=== PATIENT | male | born 1950 | race Hispanic/Latino ===

== ENCOUNTER 2021-11-24 23:21 | Emergency (ER) | payer BC ==
[2021-11-24 23:57] LABS: Bacteria/HPF 1+ HPF (None Seen); Bilirubin Negative (Negative); Blood, Urine 3+ (Negative); Clarity Turbid (Clear); Glucose, Urine (Dipstick) Normal (Negative); Ketone, Urine Negative (Negative); Leukocyte 25 Leu/uL (Negative); Nitrite Negative (Negative); Protein, Urine (Dipstick) Negative (Neg-Trace); RBC/HPF Greater than 50 HPF (0-3); Specific Gravity, Urine 1.011 (1.002-1.036); Squamous Epithelial 0-3 HPF (0-3); Urobilinogen Normal mg/dL (Less than 2)
[2021-11-25] MEDS ORDERED: Ciprofloxacin 500 MG TAB ONE (04:40)
== END 2021-11-25 04:53 | disposition home or self-care (01) ==
LOC: ERS 23:21
DX: R39.198 Other difficulties with micturition (principal); R31.9 Hematuria, unspecified; I10 Essential (primary) hypertension; I25.2 Old myocardial infarction
CPT/HCPCS: 51702; 81003; 81015

== ENCOUNTER 2022-04-30 11:15 | Outpatient (CLI) | payer BC ==
[2022-04-30 12:13] LABS: #Eosinphils 0.2 10x3/uL (0.0-0.5); #Monocytes 0.6 10x3/uL (0.0-1.1); #Neutrophils 5.1 10x3/uL (1.5-8.4); %Basophils 0.5 % (0.0-2.0); %Eosinophils 2.1 % (0.0-6.0); %Lymphocytes 25.6 % (18.0-47.0); %Neutrophils 63.6 % (40.0-75.0); Hemoglobin 14.7 g/dL (13.5-17.5); Mean Corpuscular HGB CONC 34.5 g/dL (32.0-36.0); Mean Corpuscular Hemoglobin 28.7 pg (27.0-33.0); Mean Platelet Volume 11.4 fl (7.4-10.4); Platelet Count 192 10x3/uL (150-450); RBC Distribution Width 13.3 % (11.5-14.5); Red Blood Cell (RBC) Count 5.13 10x6/uL (4.32-5.72)
[2022-04-30 13:11] LABS: ALT (SGPT) 18 U/L (8-55); AST (SGOT) 19 U/L (5-34); Alkaline Phosphatase 97 U/L (40-110); Anion Gap 13 mmol/L (10-20); BUN (Urea Nitrogen) 17 mg/dL (8.4-25.7); Bilirubin, Total 1.4 mg/dL (0.2-1.2); Calc. Creatinine Clearance 0 mL/min (70-130); Calcium 9.3 mg/dL (7.8-10.44); Carbon Dioxide 24 mmol/L (23-31); Chloride 108 mmol/L (98-107); Estimated GFR 76; Globulin 2.9 g/dL (2.4-3.5); Glucose 100 mg/dL (80-115); Potassium 4.4 mmol/L (3.5-5.1); Protein, Total 6.9 g/dL (5.8-8.1); Sodium 141 mmol/L (136-145)
== END 2022-04-30 11:16 | disposition home or self-care (01) ==
LOC: LABBT 11:15
PROVIDERS: ATTEND Internal Medicine Cardiovascular Disease
DX: Z01.812 Encounter for preprocedural laboratory examination (principal); Z20.822 Contact with and (suspected) exposure to COVID-19
CPT/HCPCS: 80053; 85025; 87811

== ENCOUNTER 2022-07-06 12:26 | Outpatient (CLI) | payer BC ==
[2022-07-06 13:15] LABS: Hemoglobin 14.1 g/dL (13.5-17.5); Mean Corpuscular HGB CONC 34.3 g/dL (32.0-36.0); Mean Corpuscular Hemoglobin 29.3 pg (27.0-33.0); Mean Corpuscular Volume 85.4 fl (81.2-95.1); Mean Platelet Volume 11.3 fl (7.4-10.4); Platelet Count 209 10x3/uL (150-450); RBC Distribution Width 13.2 % (11.5-14.5); Red Blood Cell (RBC) Count 4.81 10x6/uL (4.32-5.72); White Blood Cell (WBC) Count 8.9 10x3/uL (3.5-10.5)
[2022-07-06 13:32] LABS: Anion Gap 13 mmol/L (10-20); BUN (Urea Nitrogen) 18 mg/dL (8.4-25.7); Calc. Creatinine Clearance 0 mL/min (70-130); Calcium 10.1 mg/dL (7.8-10.44); Carbon Dioxide 28 mmol/L (23-31); Chloride 106 mmol/L (98-107); Estimated GFR 81; Glucose 109 mg/dL (80-115); Potassium 3.8 mmol/L (3.5-5.1); Sodium 143 mmol/L (136-145)
== END 2022-07-06 12:27 | disposition home or self-care (01) ==
LOC: LABBT 12:26
PROVIDERS: ATTEND Internal Medicine Cardiovascular Disease
DX: Z01.812 Encounter for preprocedural laboratory examination (principal); I42.9 Cardiomyopathy, unspecified
CPT/HCPCS: 80048; 85027

== ENCOUNTER 2022-07-09 09:21 | Day surgery (SDC) | payer BC ==
[2022-07-06 09:30] VITALS: BMI 27.2
[2022-07-09] MEDS ORDERED: Gentamicin 80 MG/2 ML VIAL ONE (14:02)
[2022-07-09] MEDS ORDERED: CEFAZOLIN 1 GM VIAL ONE (14:02)
[2022-07-09] MEDS ORDERED: Lidocaine 1% (PF) 30 ML VIAL ONE (14:03)
[2022-07-09] MEDS ORDERED: PROPOFOL 200 MG/20 ML VIAL ONE (14:20)
== END 2022-07-09 15:33 | disposition home or self-care (01) ==
LOC: SDC 09:21
PROVIDERS: ATTEND Internal Medicine Cardiovascular Disease
PROC: 02HK3KZ Insertion of Defibrillator Lead into Right Ventricle, Percutaneous Approach (ICD-10-PCS; principal; 2022-07-09)
PROC: 0JH608Z Insertion of Defibrillator Generator into Chest Subcutaneous Tissue and Fascia, Open Approach (ICD-10-PCS; principal; 2022-07-09)
DX: I25.5 Ischemic cardiomyopathy (principal); I11.0 Hypertensive heart disease with heart failure; I50.22 Chronic systolic (congestive) heart failure; I45.10 Unspecified right bundle-branch block; E78.00 Pure hypercholesterolemia, unspecified; H40.9 Unspecified glaucoma; I25.10 Atherosclerotic heart disease of native coronary artery without angina pectoris; I25.2 Old myocardial infarction; Z87.891 Personal history of nicotine dependence; Z79.2 Long term (current) use of antibiotics; Z79.82 Long term (current) use of aspirin; Z79.899 Other long term (current) drug therapy; Z95.5 Presence of coronary angioplasty implant and graft
CPT/HCPCS: J0690; J1580; J2001; J2704

== ENCOUNTER 2022-08-01 17:27 | Inpatient (IN) | payer BC, MEDICARE ==
[2022-08-01 17:54] LABS: #Eosinphils 0.1 thou/uL (0.0-0.7); #Lymphocytes 1.9 thou/uL (1.20-3.40); #Monocytes 0.6 thou/uL (0.11-0.59); #Neutrophils 5.2 thou/uL (1.40-6.50); %Basophils 0.2 % (0.0-1.0); %Eosinophils 1.8 % (0.0-10.0); %Lymphocytes 24.5 % (21.0-51.0); %Monocytes 7.8 % (0.0-10.0); %Neutrophils 65.8 % (42.0-75.0); Hemoglobin 16.3 g/dL (14.0-18.0); Mean Corpuscular HGB CONC 33.6 g/dL (32.0-36.0); Mean Corpuscular Hemoglobin 30.3 pg (27.0-31.0); Mean Corpuscular Volume 90.2 fl (78.0-98.0); Platelet Count 197 10x3/uL (130-400); RBC Distribution Width 12.3 % (11.5-14.5); Red Blood Cell (RBC) Count 5.38 mill/uL (4.70-6.10); White Blood Cell (WBC) Count 7.9 10x3/uL (4.8-10.8)
[2022-08-01 18:13] LABS: ALT (SGPT) 25 U/L (8-55); AST (SGOT) 22 U/L (5-34); Albumin 4.5 g/dL (3.4-4.8); Alkaline Phosphatase 100 U/L (40-110); Anion Gap 14 mmol/L (10-20); BUN (Urea Nitrogen) 20 mg/dL (8.4-25.7); Bilirubin, Total 0.9 mg/dL (0.2-1.2); Calc. Creatinine Clearance 0 mL/min (70-130); Calcium 9.8 mg/dL (7.8-10.44); Carbon Dioxide 24 mmol/L (23-31); Chloride 106 mmol/L (98-107); Estimated GFR 70; Globulin 3.6 g/dL (2.4-3.5); Glucose 106 mg/dL (80-115); Potassium 4.3 mmol/L (3.5-5.1); Protein, Total 8.1 g/dL (5.8-8.1); Sodium 140 mmol/L (136-145)
[2022-08-01] MEDS ORDERED: Nitroglycerin 2% Ointment 1 INCH/1 GM Packet ONE (19:05)
[2022-08-01] MEDS ORDERED: Aspirin Chewable 81 MG TAB ONE (19:05)
[2022-08-01 19:13] LABS: CK (CPK) 166 U/L (30-200); Lipase 57 U/L (8-78)
[2022-08-01 19:57] LABS: Bilirubin Negative (Negative); Blood, Urine Negative (Negative); Clarity Clear (Clear); Glucose, Urine (Dipstick) Normal (Negative); Ketone, Urine Negative (Negative); Leukocyte Negative Leu/uL (Negative); Nitrite Negative (Negative); Protein, Urine (Dipstick) Negative (Neg-Trace); Specific Gravity, Urine 1.008 (1.002-1.036); Urobilinogen Normal mg/dL (Less than 2); pH, Urine 6.5 (5.0-9.0)
[2022-08-01] MEDS ORDERED: Senokot S 8.6-50 MG TAB PO PRN (21:54)
[2022-08-01] MEDS ORDERED: Ondansetron ODT 4 MG TAB PO PRN (21:54)
[2022-08-01] MEDS ORDERED: Acetaminophen 325 MG TAB PO PRN (21:54)
[2022-08-01 22:21] VITALS: BMI 27.8
[2022-08-02 04:53] LABS: #Basophils 0.1 thou/uL (0.0-0.2); #Eosinphils 0.2 thou/uL (0.0-0.7); #Lymphocytes 2.1 thou/uL (1.20-3.40); #Monocytes 0.9 thou/uL (0.11-0.59); #Neutrophils 4.9 thou/uL (1.40-6.50); %Basophils 0.7 % (0.0-1.0); %Eosinophils 2.4 % (0.0-10.0); %Lymphocytes 25.7 % (21.0-51.0); %Monocytes 10.6 % (0.0-10.0); %Neutrophils 60.6 % (42.0-75.0); Hemoglobin 13.8 g/dL (14.0-18.0); Mean Corpuscular HGB CONC 33.4 g/dL (32.0-36.0); Mean Corpuscular Hemoglobin 30.1 pg (27.0-31.0); Mean Platelet Volume 9.2 fL (7.4-10.4); Platelet Count 171 10x3/uL (130-400); RBC Distribution Width 12.3 % (11.5-14.5); White Blood Cell (WBC) Count 8.1 10x3/uL (4.8-10.8)
[2022-08-02 05:12] LABS: Anion Gap 12 mmol/L (10-20); BUN (Urea Nitrogen) 20 mg/dL (8.4-25.7); Calc. Creatinine Clearance 78 mL/min (70-130); Calcium 8.8 mg/dL (7.8-10.44); Carbon Dioxide 25 mmol/L (23-31); Chloride 108 mmol/L (98-107); Estimated GFR 72; Glucose 101 mg/dL (80-115); Potassium 3.2 mmol/L (3.5-5.1); Sodium 142 mmol/L (136-145)
[2022-08-02] MEDS ORDERED: Potassium Chloride 20 MEQ TAB PO SCH (08:00)
[2022-08-02 08:39] LABS: Magnesium 2.1 mg/dL (1.6-2.6)
[2022-08-02] MEDS: Atorvastatin Calcium 40 MG TAB PO SCH (08:54)
[2022-08-02] MEDS: Aspirin 81 mg Enteric Coated Tablet PO SCH (08:54)
[2022-08-02] MEDS: Finasteride 5 MG TAB PO SCH (08:55)
[2022-08-02] MEDS: Tamsulosin HCl 0.4 MG CAP PO SCH (08:55)
[2022-08-02] MEDS: Famotidine 20 MG TAB PO SCH ×2 (08:55→21:29)
[2022-08-02] MEDS: Furosemide 20 MG TAB PO SCH (08:55)
[2022-08-02] MEDS: Brimonidine Tartrate 0.2% Ophth Soln 5 ml Bottle EA EYE SCH ×2 (08:55→21:27)
[2022-08-02] MEDS: Sacubitril 49 MG/Valsartan 51 MG TABLET PO SCH ×2 (08:55→21:29)
[2022-08-02] MEDS: Ezetimibe 10 MG TAB PO SCH (08:55)
[2022-08-02] MEDS: Timolol 0.5% Ophth Soln 5 ml Bottle EA EYE SCH ×2 (08:56→21:27)
[2022-08-02] MEDS ORDERED: FLU VACC QS2022-23(65YR UP)/PF 240 MCG/0.7 ML SYRINGE IM ONE (09:00)
[2022-08-02] MEDS: Enoxaparin Sodium 40 MG/0.4 ML SYRINGE SC SCH (13:33)
[2022-08-02] MEDS: Carvedilol 6.25 MG TAB PO SCH ×2 (13:33→15:28)
[2022-08-02] MEDS ORDERED: Latanoprost 0.005% Ophth Soln 2.5 ml Bottle EA EYE SCH (21:00)
[2022-08-02] MEDS: Indomethacin 25 mg Capsule PO SCH (21:29)
[2022-08-03 06:45] LABS: #Eosinphils 0.2 thou/uL (0.0-0.7); #Lymphocytes 2.1 thou/uL (1.20-3.40); #Monocytes 0.7 thou/uL (0.11-0.59); #Neutrophils 3.5 thou/uL (1.40-6.50); %Basophils 0.7 % (0.0-1.0); %Eosinophils 2.7 % (0.0-10.0); %Lymphocytes 31.9 % (21.0-51.0); %Monocytes 11.1 % (0.0-10.0); %Neutrophils 53.6 % (42.0-75.0); Hemoglobin 14.3 g/dL (14.0-18.0); Mean Corpuscular HGB CONC 33.5 g/dL (32.0-36.0); Mean Corpuscular Hemoglobin 30.1 pg (27.0-31.0); Platelet Count 152 10x3/uL (130-400); RBC Distribution Width 12.3 % (11.5-14.5); Red Blood Cell (RBC) Count 4.76 mill/uL (4.70-6.10); White Blood Cell (WBC) Count 6.5 10x3/uL (4.8-10.8)
[2022-08-03 07:13] LABS: Anion Gap 9 mmol/L (10-20); BUN (Urea Nitrogen) 20 mg/dL (8.4-25.7); Calc. Creatinine Clearance 91 mL/min (70-130); Calcium 9.2 mg/dL (7.8-10.44); Carbon Dioxide 25 mmol/L (23-31); Chloride 108 mmol/L (98-107); Estimated GFR 87; Glucose 100 mg/dL (80-115); Magnesium 2.1 mg/dL (1.6-2.6); Potassium 3.9 mmol/L (3.5-5.1); Sodium 138 mmol/L (136-145)
[2022-08-03] MEDS ORDERED: Carvedilol 25 MG TAB PO SCH ×2 (08:00→17:00)
[2022-08-03] MEDS: Aspirin 81 mg Enteric Coated Tablet PO SCH (09:26)
[2022-08-03] MEDS: Atorvastatin Calcium 40 MG TAB PO SCH (09:27)
[2022-08-03] MEDS: Enoxaparin Sodium 40 MG/0.4 ML SYRINGE SC SCH (09:27)
[2022-08-03] MEDS: Famotidine 20 MG TAB PO SCH (09:28)
[2022-08-03] MEDS: Finasteride 5 MG TAB PO SCH (09:28)
[2022-08-03] MEDS: Ezetimibe 10 MG TAB PO SCH (09:28)
[2022-08-03] MEDS: Indomethacin 25 mg Capsule PO SCH (09:28)
[2022-08-03] MEDS: Sacubitril 49 MG/Valsartan 51 MG TABLET PO SCH (09:28)
[2022-08-03] MEDS: Furosemide 20 MG TAB PO SCH (09:28)
[2022-08-03] MEDS: Tamsulosin HCl 0.4 MG CAP PO SCH (09:28)
[2022-08-03] MEDS: Timolol 0.5% Ophth Soln 5 ml Bottle EA EYE SCH (09:33)
[2022-08-03] MEDS: Brimonidine Tartrate 0.2% Ophth Soln 5 ml Bottle EA EYE SCH (09:34)
[2022-08-03 16:12] VITALS: BP 145/71; TEMP 97.4
== END 2022-08-03 17:30 | disposition home or self-care (01) | DRG 552 ==
LOC: ERS 17:27 → 2SW 21:05 → OBSVTOIN 08-03 12:27
PROVIDERS: ADMIT Hospitalist; ATTEND Hospitalist
DX: M54.89 Other dorsalgia (principal); I50.22 Chronic systolic (congestive) heart failure; Z20.822 Contact with and (suspected) exposure to COVID-19; I25.10 Atherosclerotic heart disease of native coronary artery without angina pectoris; N40.0 Benign prostatic hyperplasia without lower urinary tract symptoms; H40.9 Unspecified glaucoma; I25.5 Ischemic cardiomyopathy; G89.29 Other chronic pain; M51.36 Other intervertebral disc degeneration, lumbar region; E78.00 Pure hypercholesterolemia, unspecified; I11.0 Hypertensive heart disease with heart failure; Z28.21 Immunization not carried out because of patient refusal; Z95.5 Presence of coronary angioplasty implant and graft; Z95.810 Presence of automatic (implantable) cardiac defibrillator; Z98.49 Cataract extraction status, unspecified eye; Z82.49 Family history of ischemic heart disease and other diseases of the circulatory system; Z79.899 Other long term (current) drug therapy; Z79.82 Long term (current) use of aspirin; I25.2 Old myocardial infarction; Z87.891 Personal history of nicotine dependence
CPT/HCPCS: 36415; 71045; 80048; 80053; 81003; 82550; 83690; 83735; 83880; 84484; 85025; 93005; 93306; 96372; G0378; J1650; U0003; U0005

== ENCOUNTER 2024-09-23 11:03 | Observation (INO) | payer MEDICARE, OTHER ==
[2024-09-23 12:18] LABS: #Basophils 0.05 10x3/uL (0.0-0.2); %Basophils 0.6 % (0.0-1.0); %Eosinophils 1.5 % (0.0-10.0); %Lymphocytes 21.2 % (21.0-51.0); %Monocytes 8.2 % (0.0-10.0); %Neutrophils 68.4 % (42.0-75.0); Hemoglobin 15.6 g/dL (14.0-18.0); Mean Corpuscular HGB CONC 31.8 g/dL (32.0-36.0); Mean Corpuscular Hemoglobin 28.8 pg (27.0-31.0); Mean Corpuscular Volume 90.6 fL (78.0-98.0); Mean Platelet Volume 11.7 fL (7.4-10.4); Platelet Count 157 10x3/uL (130-400); Red Blood Cell (RBC) Count 5.41 mill/uL (4.70-6.10)
[2024-09-23 12:48] LABS: ALT (SGPT) 18 U/L (Less than 45); AST (SGOT) 22 U/L (11-34); Albumin 4.1 g/dL (3.1-4.5); Alkaline Phosphatase 93 U/L (40-110); Anion Gap 13 mmol/L (10-20); BUN (Urea Nitrogen) 23 mg/dL (8.4-25.7); Bilirubin, Total 0.8 mg/dL (0.3-1.2); Calc. Creatinine Clearance 0 mL/min (70-130); Calcium 9.7 mg/dL (7.8-10.44); Carbon Dioxide 25 mmol/L (23-31); Chloride 113 mmol/L (98-107); Estimated GFR 91; Globulin 3.6 g/dL (2.4-3.5); Glucose 93 mg/dL (83-110); Magnesium 2.2 mg/dL (1.6-2.6); Potassium 4.4 mmol/L (3.5-5.1); Protein, Total 7.7 g/dL (5.8-8.1); Sodium 147 mmol/L (136-145); Troponin I 0.018 ng/mL (< 0.028)
[2024-09-23 13:03] LABS: Bacteria/HPF None Seen HPF (None Seen); Bilirubin Negative (Negative); Blood, Urine Negative (Negative); CAUTI Indications for Culture Dysuria,urgency,freq; Clarity Clear (Clear); Glucose, Urine (Dipstick) Greater than 1000 mg/dL (Negative); Ketone, Urine Negative (Negative); Leukocyte Negative Leu/uL (Negative); Nitrite Negative (Negative); Protein, Urine (Dipstick) Negative (Neg-Trace); RBC/HPF None Seen HPF (0-3); Specific Gravity, Urine 1.026 (1.002-1.036); Squamous Epithelial 0-3 HPF (0-3); Urobilinogen Normal mg/dL (Less than 2); WBC/HPF 0-3 HPF (0-3)
[2024-09-23 13:05] LABS: Urine Culture Reflex No No
[2024-09-23 15:45] LABS: Troponin I Less than 0.010 ng/mL (< 0.028)
[2024-09-23] MEDS ORDERED: Ondansetron ODT 4 MG TAB PO PRN (18:03)
[2024-09-23] MEDS ORDERED: Nitroglycerin 0.4 MG TAB (25 Tab Bottle) SL PRN (18:03)
[2024-09-23] MEDS ORDERED: Ondansetron PF 4 MG/2 ML Vial IVP PRN (18:03)
[2024-09-23] MEDS ORDERED: Acetaminophen 650 MG Suppository PR PRN (18:03)
[2024-09-23 18:38] VITALS: BMI 27.7
[2024-09-23] MEDS: Acetaminophen 325 MG TAB PO PRN (19:06)
[2024-09-23] MEDS: Atorvastatin Calcium 40 MG TAB PO SCH (20:02)
[2024-09-23] MEDS: Sacubitril 49 MG/Valsartan 51 MG TABLET PO SCH (20:02)
[2024-09-23] MEDS: Tamsulosin HCl 0.4 MG CAP PO SCH (20:02)
[2024-09-23] MEDS: FLU (Fluad Triv) TS24-25 (65UP)/MF59C/PF 45 MCG/0.5 ML Syringe IM ONE (20:09)
[2024-09-23 20:43] LABS: Troponin I Less than 0.010 ng/mL (< 0.028)
[2024-09-23] MEDS: Latanoprost 0.005% Ophth Soln 2.5 ml Bottle EA EYE SCH (22:26)
[2024-09-23] MEDS: Timolol 0.5% Ophth Soln 5 ml Bottle EA EYE SCH (22:27)
[2024-09-23] MEDS: Brimonidine Tartrate 0.2% Ophth Soln 5 ml Bottle EA EYE SCH (22:27)
[2024-09-23 23:58] LABS: Troponin I 0.012 ng/mL (< 0.028)
[2024-09-24 05:17] LABS: Anion Gap 9 mmol/L (10-20); BUN (Urea Nitrogen) 19 mg/dL (8.4-25.7); Calc. Creatinine Clearance 101 mL/min (70-130); Calcium 8.5 mg/dL (7.8-10.44); Carbon Dioxide 24 mmol/L (23-31); Chloride 114 mmol/L (98-107); Estimated GFR 93; Glucose 93 mg/dL (83-110); Potassium 3.4 mmol/L (3.5-5.1); Sodium 144 mmol/L (136-145)
[2024-09-24] MEDS ORDERED: Electrolyte Replacement Protocol 1 EACH FS ONE (08:30)
[2024-09-24] MEDS ORDERED: Electrolyte Replacement Protocol FS PRN (08:45)
[2024-09-24] MEDS ORDERED: Tadalafil [Cialis] 5 MG Tablet PO SCH (09:00)
[2024-09-24] MEDS: Furosemide 40 MG TAB PO SCH (09:35)
[2024-09-24] MEDS: Empagliflozin 10 MG TAB PO SCH (09:35)
[2024-09-24] MEDS: Aspirin Chewable 81 MG TAB PO SCH (09:35)
[2024-09-24] MEDS: Potassium Chloride 20 MEQ TAB PO SCH (09:35)
[2024-09-24] MEDS: Ezetimibe 10 MG TAB PO SCH (09:35)
[2024-09-24] MEDS: Finasteride 5 MG TAB PO SCH (09:36)
[2024-09-24] MEDS: Timolol 0.5% Ophth Soln 5 ml Bottle EA EYE SCH (09:37)
[2024-09-24] MEDS: Brimonidine Tartrate 0.2% Ophth Soln 5 ml Bottle EA EYE SCH (09:38)
[2024-09-24 15:52] VITALS: BP 135/64; TEMP 98.2
[2024-09-24] MEDS ORDERED: Latanoprost 0.005% Ophth Soln 2.5 ml Bottle EA EYE SCH (21:00)
== END 2024-09-24 17:15 | disposition home or self-care (01) ==
LOC: ERS 11:03 → 2NO 17:01
PROVIDERS: ADMIT Family Medicine; ATTEND Internal Medicine
DX: R07.89 Other chest pain (principal); I11.0 Hypertensive heart disease with heart failure; I50.22 Chronic systolic (congestive) heart failure; R00.1 Bradycardia, unspecified; C61 Malignant neoplasm of prostate; N40.0 Benign prostatic hyperplasia without lower urinary tract symptoms; H40.9 Unspecified glaucoma; Z90.49 Acquired absence of other specified parts of digestive tract; Z98.890 Other specified postprocedural states; Z79.899 Other long term (current) drug therapy; Z87.891 Personal history of nicotine dependence; Z79.82 Long term (current) use of aspirin; Z95.810 Presence of automatic (implantable) cardiac defibrillator
CPT/HCPCS: 36415; 71045; 80048; 80053; 81001; 83735; 83880; 84484; 85025; 93005; G0378

== ENCOUNTER 2025-09-01 10:58 | Emergency (ER) | payer OTHER ==
[2025-09-01 12:28] LABS: #Basophils 0.03 10x3/uL (0.0-0.2); #Eosinophils 0.13 10x3/uL (0.0-0.7); #Monocytes 0.63 10x3/uL (0.11-0.59); #Neutrophils 5.19 10x3/uL (1.40-6.50); %Basophils 0.4 % (0.0-1.0); %Eosinophils 1.7 % (0.0-10.0); %Lymphocytes 20.1 % (21.0-51.0); %Monocytes 8.4 % (0.0-10.0); %Neutrophils 69.3 % (42.0-75.0); Hematocrit 44.8 % (42.0-52.0); Hemoglobin 14.7 g/dL (14.0-18.0); Mean Corpuscular Hemoglobin 27.7 pg (27.0-31.0); Mean Corpuscular Volume 84.4 fL (78.0-98.0); Platelet Count 173 10x3/uL (130-400); Red Blood Cell (RBC) Count 5.31 mill/uL (4.70-6.10); White Blood Cell (WBC) Count 7.50 10x3/uL (4.8-10.8)
[2025-09-01 12:44] LABS: ALT (SGPT) 20 U/L (Less than 45); AST (SGOT) 23 U/L (11-34); Albumin 4.0 g/dL (3.1-4.5); Alkaline Phosphatase 84 U/L (40-110); Anion Gap 11 mmol/L (10-20); BUN (Urea Nitrogen) 20 mg/dL (8.4-25.7); Bilirubin, Total 0.7 mg/dL (0.3-1.2); Calc. Creatinine Clearance 0 mL/min (70-130); Calcium 9.7 mg/dL (7.8-10.44); Carbon Dioxide 25 mmol/L (23-31); Chloride 111 mmol/L (98-107); Globulin 3.2 g/dL (2.4-3.5); Glucose 98 mg/dL (83-110); Potassium 4.2 mmol/L (3.5-5.1); Sodium 143 mmol/L (136-145)
== END 2025-09-01 14:02 | disposition home or self-care (01) ==
LOC: ERS 10:58
DX: R07.89 Other chest pain (principal); J06.9 Acute upper respiratory infection, unspecified; I25.2 Old myocardial infarction; I10 Essential (primary) hypertension; Z79.82 Long term (current) use of aspirin; Z79.899 Other long term (current) drug therapy
CPT/HCPCS: 36415; 71046; 80053; 83880; 84484; 85025; 87428; 93005